=== PATIENT | female | born 1975 | race Caucasian/White ===

== ENCOUNTER 2025-03-12 06:08 | Day surgery (SDC) | payer OTHER, MEDICAID, SELFPAY ==
[2025-03-12] VITALS (10 sets, daily range): BP systolic 135–161; BP diastolic 75–90; BMI 49.1
[2025-03-12] MEDS: NORMOSOL-R/PLASMALYTE-A 1000 IV (07:21)
== END 2025-03-12 10:53 | disposition home or self-care (01) ==
LOC: SDS 06:08
PROVIDERS: ATTENDING PHYSICIAN Otolaryngology
DX: J34.2 Deviated nasal septum (principal); J32.2 Chronic ethmoidal sinusitis; J32.1 Chronic frontal sinusitis; J32.0 Chronic maxillary sinusitis
CPT/HCPCS: 31254; 30520; 31256; 31267; 88300; 88304; 88311